=== PATIENT | male | born 1935 | race Caucasian/White ===

== ENCOUNTER 2017-06-12 09:21 | Emergency (ER) | payer MEDICARE, OTHER ==
[2017-06-12] MEDS ORDERED: Adacel (T-DAP) 0.5 ML VIAL ONE (10:02)
== END 2017-06-12 10:26 | disposition home or self-care (01) ==
LOC: ERS 09:21
DX: S80.811A Abrasion, right lower leg, initial encounter (principal); L03.115 Cellulitis of right lower limb; W22.8XXA Striking against or struck by other objects, initial encounter; Y93.53 Activity, golf
CPT/HCPCS: 90471; 90715

== ENCOUNTER 2017-12-19 12:47 | Emergency (ER) | payer MEDICARE, OTHER ==
--- NOTE | 2017-12-19 15:57 | RAD ---
PA AND LATERAL CHEST: Date: 12/19/17 HISTORY: Cough, congestion, and sore throat. FINDINGS: Heart size and mediastinum are within normal limits. Lungs are clear of infiltrates. There are some m ild arthritic changes of the spine. IMPRESSION: No active intrathoracic disease. POS: [facility]
== END 2017-12-19 15:41 | disposition home or self-care (01) ==
LOC: ERS 12:47
DX: J06.9 Acute upper respiratory infection, unspecified (principal); E78.5 Hyperlipidemia, unspecified; Z79.82 Long term (current) use of aspirin; Z79.899 Other long term (current) drug therapy
CPT/HCPCS: 71046

== ENCOUNTER 2018-12-29 14:42 | Outpatient (CLI) | payer MEDICARE, OTHER ==
[2018-12-29 15:38] LABS: #Basophils 0.1 thou/uL (0.0-0.2); #Eosinphils 0.1 thou/uL (0.0-0.7); #Lymphocytes 1.9 thou/uL (1.20-3.40); #Monocytes 0.7 thou/uL (0.11-0.59); %Basophils 1.1 % (0.0-1.0); %Lymphocytes 28.2 % (21.0-51.0); %Neutrophils 58.7 % (42.0-75.0); Hemoglobin 14.9 g/dL (14.0-18.0); Mean Corpuscular HGB CONC 32.4 g/dL (32.0-36.0); Mean Corpuscular Hemoglobin 30.6 pg (27.0-31.0); Mean Corpuscular Volume 94.4 fL (78.0-98.0); Mean Platelet Volume 8.3 fL (7.4-10.4); Platelet Count 279 thou/uL (130-400); RBC Distribution Width 12.4 % (11.5-14.5); Red Blood Cell (RBC) Count 4.86 mill/uL (4.70-6.10); White Blood Cell (WBC) Count 6.8 thou/uL (4.8-10.8)
[2018-12-29 16:01] LABS: ALT (SGPT) 15 U/L (8-55); AST (SGOT) 16 U/L (5-34); Albumin 4.4 g/dL (3.4-4.8); Alkaline Phosphatase 72 U/L (40-150); Anion Gap 12 mmol/L (10-20); BUN (Urea Nitrogen) 15 mg/dL (8.4-25.7); Bilirubin, Total 0.5 mg/dL (0.2-1.2); Calc. Creatinine Clearance 0 mL/min (70-130); Calcium 9.5 mg/dL (7.8-10.44); Carbon Dioxide 28 mmol/L (23-31); Chloride 103 mmol/L (98-107); Estimated GFR-MDRD 82; Globulin 2.2 g/dL (2.4-3.5); Potassium 3.9 mmol/L (3.5-5.1); Protein, Total 6.6 g/dL (5.8-8.1); Sodium 139 mmol/L (136-145)
[2018-12-29 16:16] LABS: Glucose 59 mg/dL (83-110)
== END 2018-12-29 14:43 | disposition home or self-care (01) ==
LOC: LABBT 14:42
PROVIDERS: ATTEND Surgery
DX: Z01.818 Encounter for other preprocedural examination (principal); K40.90 Unilateral inguinal hernia, without obstruction or gangrene, not specified as recurrent
CPT/HCPCS: 80053; 85025; 93005; 93010

== ENCOUNTER 2019-01-03 11:16 | Day surgery (SDC) | payer MEDICARE, OTHER ==
[2018-12-29 15:40] VITALS: BMI 25.3
[2019-01-03] MEDS ORDERED: Bupivacaine/Epinephrine 0.25% 30 ML VIAL ONE (13:27)
[2019-01-03] MEDS ORDERED: Fentanyl 100 MCG/2 ML VIAL ONE ×2 (13:31→14:59)
--- NOTE | 2019-01-03 15:43 | OP ---
DATE OF PROCEDURE: 01/03/2019 PREOPERATIVE DIAGNOSIS: Right inguinal hernia. PROCEDURE PERFORMED: Right inguinal hernia repair with mesh. INDICATIONS: This is an 83-year-old male with a painful bulge in the right groin, found to have a hernia. FINDINGS: Right indirect inguinal hernia without a lipoma of the cord. DESCRIPTION OF PROCEDURE: After informed consent was obtained, the patient was taken to the operating room and given general and mask anesthesia, placed in supine position. His groin was prepped and draped in usual fashion. Local anesthesia infiltrated subcutaneously and deep. Transverse right inguinal incision was performed. Subcu divided sharply. The fascia external oblique was incised in direction of its fibers through the external ring. Spermatic cord isolated with a [place] drain. Cremasteric fibers and a large lipoma was dissected from surrounding cord structures. Its base was ligated with a 2-0 silk suture and removed. A hernia sac was then found. This was also dissected from surrounding cord structures down to the internal ring and reduced. Reduction maintained with a PHS hernia system placed in the preperitoneal space. Anterior was laid out, sutured to the pubic tubercle medially with a 2-0 Prolene suture laterally. It was tucked under the external oblique fascia. Hemostasis assured. The cord placed anatomically. The external oblique fascia closed with a running 3-0 Vicryl. Ashleigh was closed with interrupted 3-0 Vicryl and the skin closed with a running subcuticular 4-0 Rapide. Steri-Strips applied. Sterile bandage applied. The patient tolerated the procedure well, transferred to Recovery in good condition. Sponge and needle count verified correct x2. Job ID: [id number]
== END 2019-01-03 16:45 | disposition home or self-care (01) ==
LOC: SDC 11:16
PROVIDERS: ATTEND Surgery
PROC: 0YU50JZ Supplement Right Inguinal Region with Synthetic Substitute, Open Approach (ICD-10-PCS; principal; 2019-01-03)
DX: K40.90 Unilateral inguinal hernia, without obstruction or gangrene, not specified as recurrent (principal); D17.6 Benign lipomatous neoplasm of spermatic cord; E78.00 Pure hypercholesterolemia, unspecified; Z79.82 Long term (current) use of aspirin; Z79.899 Other long term (current) drug therapy
CPT/HCPCS: C1781; J0690; J3010

== ENCOUNTER 2019-04-20 07:35 | Outpatient (CLI) | payer MEDICARE, OTHER ==
--- NOTE | 2019-04-20 08:45 | MRI ---
MRI LUMBAR SPINE WITHOUT CONTRAST: DATE: 04/20/2019. COMPARISON: 02/07/2014. HISTORY: Bilateral leg pain, back pain, spinal stenosis. TECHNIQUE: Multiplanar multisequence MR imaging of the lumbar spine obtained without contrast. FINDINGS: The sagittal STIR imaging demonstrates a focal area of osseous marrow edema associated with the right lateral aspect of the L5 superior endplate. This may be on the basis of a mild superior endplate fracture or acute Schmorl's node. There is no significant vertebral body height loss. There is a new T1-T2 hypointense round 8 mm focus within the L4 vertebral body abutting the superior endplate. On the basis of 5 lumbar type vertebral bodies, conus medullaris terminates at L1. T12-L1: Intervertebral disc height and signal intensity within normal limits with no significant cent ral canal or neural foraminal stenosis. L1-2: Mild bilateral facet hypertrophy. Intervertebral disc height and signal intensity is within nor mal limits. No significant central canal or neural foraminal stenosis. L2-3: Mild bilateral facet hypertrophy. No significant central canal or neural foraminal stenosis. L3-4: There is disc space narrowing and disc desiccation. Bilateral facet hypertrophy noted, left gre ater than right. There is significant left lateral osteophyte formation, stable. Stable foraminal and post foraminal disc protrusion on the left. No significant central canal stenosis. Mild right and moderate left neural foraminal stenosis. L4-5: There is disc space narrowing and disc desiccation with disc bulge. There is a superimposed kelly tral/right paracentral disc protrusion, increased in size when compared to the prior exam. There is associated inferior migration measuring approximately 7-8 mm. There is also prominent bilateral facet hypertrophy and hypertrophy of the ligamentum flavum. These findings lead to severe central canal stenosis/right lateral recess stenosis, significantly worsened when compared to the prior exam. Moder ate right and mild/moderate left neural foraminal stenosis. L5-S1: There is disc space narrowing, disc desiccation, and mild disc bulge with mild central canal s tenosis, stable. Mild/moderate bilateral neural foraminal stenosis, right greater than left, not significantly changed. The visualized retroperitoneal structures appear grossly unremarkable. IMPRESSION: 1. Multilevel lumbar spine degenerative change, most significantly involving the L4-5 level, worsen ed since the prior examination. 2. Focal edema involving superior endplate of L5 laterally on the right suggesting a mild superior e ndplate fracture or acute Schmorl's node. 3. T1 and T2 hypointense lesion within the L4 vertebral body, new. This should be further assessed v ia CT examination. This could signify a new sclerotic lesion. CODE T Transcribed Date/Time: 04/20/2019 9:44 AM
== END 2019-04-20 07:36 | disposition home or self-care (01) ==
LOC: TBSIIMAG 07:35
PROVIDERS: ATTEND Family Medicine
DX: M48.061 Spinal stenosis, lumbar region without neurogenic claudication (principal); M47.26 Other spondylosis with radiculopathy, lumbar region
CPT/HCPCS: 72148

== ENCOUNTER 2019-04-25 13:19 | Outpatient (CLI) | payer MEDICARE, OTHER ==
--- NOTE | 2019-04-25 15:44 | CT ---
CT of the lumbar spine: 04/25/2019 COMPARISON: None HISTORY: Abnormal lumbar spine MRI demonstrating a probable superior endplate fracture at L5 and nons pecific vertebral body lesion along the superior endplate of L4 TECHNIQUE: Axial CT imaging at 3 mm intervals through the lumbar spine with coronal and sagittal imag ing FINDINGS: The imaged retroperitoneal structures demonstrate a few nonobstructing right renal calculi measuring 2-3 mm. There is mild degenerative change involving bilateral sacroiliac joints. Evaluation for central canal and/or neural foraminal stenosis is limited on routine CT. There is a round lesion with a sclerotic border incontinuity with the superior endplate of the L4 mannie tebral body measuring 9 mm in craniocaudal dimension. This correlates with the area of signal abnormality on recent MRI and is most consistent with a benign Schmorl's node. In addition, there is ill-defined irregular lucency involving the right lateral aspect of the superio r endplate of the L5 vertebral body, consistent with a Schmorl's node. The adjacent bone is slightly sclerotic and there is mild loss of vertebral body height in this region. This correlates wi th the area of signal abnormality within the L5 vertebral body on recent MRI. This suggest mild superior endplate fracture and or edema associated with a Schmorl's node. There are no aggressive suspicious worrisome lytic or blastic bone lesions within the lumbar spine. T12-L1: No osseous cause of significant central canal or neural foraminal stenosis L1-2: No osseous cause of significant central canal or neural foraminal stenosis. Mild bilateral face t hypertrophy. L2-3: No osseous cause of significant central canal or neural foraminal stenosis. L3-4: Mild disc bulge and mild bilateral facet hypertrophy/hypertrophy ligamentum flavum. No osseous cause of significant central canal or neural foraminal stenosis. L4-5: Disc bulge with central disc protrusion suspected. Bilateral facet hypertrophy. No osseous caus e of significant central canal or neural foraminal stenosis. There is central canal and bilateral neural foraminal stenosis secondary to facet hypertrophy and disc pathology, that are assessed on rec ent MRI. L5-S1: Bilateral facet hypertrophy with significant bilateral neural foraminal stenosis. Mild disc bu lge. IMPRESSION: Lesion within L4 vertebral body seen on recent MRI correlates with a benign Schmorl's nod e. There are areas of degenerative change as detailed above. Abnormality involving the superior endplate on the right at L5 suggest mild superior endplate fracture and/or edema on the basis of a Sc hmorl's node. Please refer to the lumbar spine MRI performed at 04/20/2019 for full assessment of lumbar spine centr al canal and neural foraminal stenosis.
== END 2019-04-25 13:20 | disposition home or self-care (01) ==
LOC: BICCT 13:19
PROVIDERS: ATTEND Family Medicine
DX: R93.7 Abnormal findings on diagnostic imaging of other parts of musculoskeletal system (principal); M89.9 Disorder of bone, unspecified; M47.816 Spondylosis without myelopathy or radiculopathy, lumbar region
CPT/HCPCS: 72131

== ENCOUNTER 2019-05-03 13:11 | Outpatient (CLI) | payer MEDICARE, OTHER ==
--- NOTE | 2019-05-03 14:01 | RAD ---
LUMBAR SPINE 4 VIEWS: Date: 05/03/19 INDICATION: Lumbar radiculopathy. FINDINGS: Lumbar vertebra maintain normal height and alignment. Mild loss of disc space at L3-4, L4-5, and L5-S 1. Mild degenerative osteophytes. Mild facet hypertrophy. No evidence of spondylolisthesis. Slight po sterolisthesis at L3-4 is seen and does not appear to change with flexion or extension. IMPRESSION: Degenerative changes of the lumbar spine as described. POS: OFF
== END 2019-05-03 13:12 | disposition home or self-care (01) ==
LOC: TBSIIMAG 13:11
PROVIDERS: ATTEND Neurological Surgery
DX: M47.26 Other spondylosis with radiculopathy, lumbar region (principal)
CPT/HCPCS: 72110

== ENCOUNTER 2020-12-16 07:50 | Outpatient (CLI) | payer MEDICARE, OTHER | END 2020-12-16 07:51 | disposition home or self-care (01) | LOC: TBSIIMAG 07:50 | PROVIDERS: ATTEND Urology | DX: R97.20 Elevated prostate specific antigen [PSA] (principal) | CPT/HCPCS: 72197 ==

== ENCOUNTER 2021-06-14 07:12 | Emergency (ER) | payer MEDICARE, OTHER | END 2021-06-14 08:12 | disposition home or self-care (01) | LOC: ERS 07:12 | DX: S70.02XA Contusion of left hip, initial encounter (principal); S60.222A Contusion of left hand, initial encounter; E78.5 Hyperlipidemia, unspecified; E78.00 Pure hypercholesterolemia, unspecified; W19.XXXA Unspecified fall, initial encounter ==

== ENCOUNTER 2022-04-13 11:01 | Inpatient (IN) | payer MEDICARE, OTHER ==
[2022-04-13] MEDS ORDERED: Boostrix 0.5 ML (Tdap) VIAL (>/=7 yrs of age) ONE (12:09)
[2022-04-13] MEDS ORDERED: Cefepime 2 GM VIAL ONE (12:10)
[2022-04-13] MEDS ORDERED: Acetaminophen 500 MG TAB ONE (12:10)
[2022-04-13 12:13] LABS: Mean Corpuscular HGB CONC 32.7 g/dL (32.0-36.0); Mean Corpuscular Hemoglobin 31.2 pg (27.0-31.0); Mean Corpuscular Volume 95.5 fL (78.0-98.0); Mean Platelet Volume 7.8 fL (7.4-10.4); Platelet Count 269 thou/uL (130-400); RBC Distribution Width 12.7 % (11.5-14.5); Red Blood Cell (RBC) Count 4.48 mill/uL (4.70-6.10); White Blood Cell (WBC) Count 13.9 thou/uL (4.8-10.8)
[2022-04-13] MEDS ORDERED: Ondansetron ODT 4 MG TAB PO PRN (12:15)
[2022-04-13] MEDS ORDERED: Senokot S 8.6-50 MG TAB PO PRN (12:15)
[2022-04-13] MEDS ORDERED: HYDROcodone/Acetaminophen 5/325 mg Tablet PO PRN (12:15)
[2022-04-13] MEDS ORDERED: Ondansetron PF 4 MG/2 ML Vial IVP PRN (12:15)
[2022-04-13 12:27] LABS: ALT (SGPT) 26 U/L (8-55); AST (SGOT) 21 U/L (5-34); Albumin 3.6 g/dL (3.4-4.8); Alkaline Phosphatase 94 U/L (40-110); Anion Gap 14 mmol/L (10-20); BUN (Urea Nitrogen) 19 mg/dL (8.4-25.7); Bilirubin, Total 1.2 mg/dL (0.2-1.2); CK (CPK) 56 U/L (30-200); Calc. Creatinine Clearance 0 mL/min (70-130); Calcium 9.7 mg/dL (7.8-10.44); Carbon Dioxide 26 mmol/L (23-31); Chloride 99 mmol/L (98-107); Estimated GFR 76; Globulin 3.2 g/dL (2.4-3.5); Glucose 123 mg/dL (83-110); Potassium 4.3 mmol/L (3.5-5.1); Protein, Total 6.8 g/dL (5.8-8.1); Sodium 135 mmol/L (136-145)
[2022-04-13 12:44] LABS: Band 23 % (5-11); Lymphocytes 6 % (21-51); MDiff Complete? YES; Monocytes 12 % (0-10); Neutrophil 59 % (42-75); Platelet Morphology Comment Appears Adequate; RBC Morphology Normal
[2022-04-13] MEDS ORDERED: VANCOMYCIN 1.25 GM/250 ML BAG 1.25 GM in Premix Bag 1 BAG IVPB SCH (12:45)
[2022-04-13 15:11] VITALS: BMI 25.7
[2022-04-13] MEDS: Sodium Chloride 0.9% 1,000 ML IV SCH (16:06)
[2022-04-13] MEDS: Acetaminophen 325 MG TAB PO PRN (21:39)
[2022-04-13] MEDS: Atorvastatin Calcium 20 MG TAB PO SCH (21:39)
[2022-04-13] MEDS: Cefepime 1 GM in Sodium Chloride 0.9% 100 ML IVPB SCH (22:18)
[2022-04-14] MEDS: Vancomycin HCl 750 MG in Sodium Chloride 0.9% 250 ML 250 ML IVPB SCH ×2 (00:32→14:44)
[2022-04-14] MEDS: Acetaminophen 325 MG TAB PO PRN ×3 (05:06→15:20)
[2022-04-14] MEDS: Sodium Chloride 0.9% 1,000 ML IV SCH ×2 (06:33→11:24)
[2022-04-14 07:17] LABS: Hemoglobin 13.3 g/dL (14.0-18.0); Mean Corpuscular HGB CONC 32.8 g/dL (32.0-36.0); Mean Corpuscular Hemoglobin 31.3 pg (27.0-31.0); Mean Corpuscular Volume 95.5 fL (78.0-98.0); Platelet Count 247 thou/uL (130-400); RBC Distribution Width 12.5 % (11.5-14.5); Red Blood Cell (RBC) Count 4.26 mill/uL (4.70-6.10); White Blood Cell (WBC) Count 11.8 thou/uL (4.8-10.8)
[2022-04-14 07:42] LABS: ALT (SGPT) 36 U/L (8-55); AST (SGOT) 29 U/L (5-34); Alkaline Phosphatase 96 U/L (40-110); Anion Gap 14 mmol/L (10-20); BUN (Urea Nitrogen) 16 mg/dL (8.4-25.7); Calc. Creatinine Clearance 84 mL/min (70-130); Calcium 8.3 mg/dL (7.8-10.44); Carbon Dioxide 21 mmol/L (23-31); Chloride 102 mmol/L (98-107); Estimated GFR 87; Globulin 2.7 g/dL (2.4-3.5); Glucose 128 mg/dL (83-110); Potassium 3.5 mmol/L (3.5-5.1); Protein, Total 5.7 g/dL (5.8-8.1); Sodium 133 mmol/L (136-145)
[2022-04-14] MEDS: Heparin 5,000 UNITS/ML VIAL SC SCH ×3 (08:36→21:17)
[2022-04-14 10:20] LABS: Band 39 % (5-11); Lymphocytes 5 % (21-51); MDiff Complete? YES; Monocytes 15 % (0-10); Neutrophil 41 % (42-75); Platelet Morphology Comment Appears Adequate; RBC Morphology Normal
[2022-04-14] MEDS ORDERED: Iopamidol 370 76% 100 ML VIAL ONE (10:42)
[2022-04-14] MEDS ORDERED: Ibuprofen 600 MG TAB PO PRN (11:02)
[2022-04-14] MEDS: Cefepime 1 GM in Sodium Chloride 0.9% 100 ML IVPB SCH (11:09)
[2022-04-14] MEDS: Cefepime 2 GM in Sodium Chloride 0.9% 100 ML IVPB SCH (11:23)
[2022-04-14] MEDS ORDERED: Cefepime 2 GM VIAL ONE (11:39)
[2022-04-14] MEDS ORDERED: CEFAZOLIN 2 GM in Sodium Chloride 0.9% 100 ML IVPB SCH (12:30)
[2022-04-14] MEDS: Atorvastatin Calcium 20 MG TAB PO SCH (21:17)
[2022-04-15] MEDS: Cefepime 2 GM in Sodium Chloride 0.9% 100 ML IVPB SCH ×3 (00:21→22:00)
[2022-04-15] MEDS: Vancomycin HCl 750 MG in Sodium Chloride 0.9% 250 ML 250 ML IVPB SCH ×2 (01:46→14:52)
[2022-04-15 06:45] LABS: Anion Gap 11 mmol/L (10-20); BUN (Urea Nitrogen) 15 mg/dL (8.4-25.7); Calc. Creatinine Clearance 82 mL/min (70-130); Calcium 8.6 mg/dL (7.8-10.44); Carbon Dioxide 27 mmol/L (23-31); Chloride 100 mmol/L (98-107); Estimated GFR 87; Glucose 110 mg/dL (83-110); Potassium 3.5 mmol/L (3.5-5.1); Sodium 134 mmol/L (136-145)
[2022-04-15 07:08] LABS: Hemoglobin 12.7 g/dL (14.0-18.0); Mean Corpuscular HGB CONC 33.3 g/dL (32.0-36.0); Mean Corpuscular Hemoglobin 31.6 pg (27.0-31.0); Mean Corpuscular Volume 94.9 fL (78.0-98.0); Mean Platelet Volume 7.8 fL (7.4-10.4); Platelet Count 277 thou/uL (130-400); RBC Distribution Width 12.5 % (11.5-14.5); White Blood Cell (WBC) Count 13.4 thou/uL (4.8-10.8)
[2022-04-15] MEDS: Heparin 5,000 UNITS/ML VIAL SC SCH (09:10)
[2022-04-15] MEDS: Acetaminophen 325 MG TAB PO PRN (09:31)
[2022-04-15 10:50] LABS: Band 51 % (5-11); Lymphocytes 9 % (21-51); MDiff Complete? YES; Monocytes 1 % (0-10); Neutrophil 38 % (42-75); Platelet Morphology Comment Appears Adequate; Polychromasia SLIGHT = 2-3 cells (100X) (0-2/hpf); Reactive Lymphocytes 1 % (0-10); Toxic Granulation SLIGHT; Vacuoles SLIGHT
[2022-04-15 13:19] LABS: Vancomycin, Trough 6.9 ug/mL
[2022-04-15] MEDS: VANCOMYCIN 1.25 GM/250 ML BAG 1.25 GM in Premix Bag 1 BAG IVPB SCH (14:51)
[2022-04-15] MEDS ORDERED: Neomycin-Polymyxin 1 ML AMP ONE ×2 (17:48→18:52)
[2022-04-15] MEDS ORDERED: fentaNYL Citrate/PF 100 MCG/2 ML SYRINGE ONE ×2 (17:56→18:40)
[2022-04-15] MEDS ORDERED: Lidocaine 1% MPF 2 ML VIAL ONE (18:10)
[2022-04-15] MEDS ORDERED: Ondansetron PF 4 MG/2 ML Vial ONE (18:10)
[2022-04-15] MEDS ORDERED: PROPOFOL 200 MG/20 ML VIAL ONE (18:10)
[2022-04-15] MEDS ORDERED: Promethazine HCl 25 MG/ML VIAL IVPB PRN (19:23)
[2022-04-15] MEDS ORDERED: HYDROmorphone 2 MG/ML VIAL SLOW IVP PRN (19:23)
[2022-04-15] MEDS ORDERED: Promethazine HCl 25 MG/ML VIAL IM PRN (19:23)
[2022-04-15] MEDS ORDERED: Ondansetron HCl/PF 4 MG/2 ML Vial IVP PRN (19:23)
[2022-04-15] MEDS ORDERED: HYDROmorphone 2 MG/ML VIAL ONE (19:33)
[2022-04-15] MEDS ORDERED: Ketorolac Tromethamine 30 MG/ML VIAL ONE (19:38)
[2022-04-15] MEDS: HYDROcodone/Acetaminophen 5/325 mg Tablet PO PRN (21:13)
[2022-04-15] MEDS: Atorvastatin Calcium 20 MG TAB PO SCH (21:14)
[2022-04-16] MEDS: VANCOMYCIN 1.25 GM/250 ML BAG 1.25 GM in Premix Bag 1 BAG IVPB SCH ×2 (01:42→14:10)
[2022-04-16] MEDS: HYDROcodone/Acetaminophen 5/325 mg Tablet PO PRN ×2 (01:42→20:23)
[2022-04-16] MEDS: Cefepime 2 GM in Sodium Chloride 0.9% 100 ML IVPB SCH ×2 (10:21→22:30)
[2022-04-16] MEDS ORDERED: CEFAZOLIN 2 GM in Sodium Chloride 0.9% 100 ML IVPB SCH (11:15)
[2022-04-16] MEDS: Atorvastatin Calcium 20 MG TAB PO SCH (20:23)
[2022-04-17 01:26] LABS: Vancomycin, Trough 13.3 ug/mL
[2022-04-17] MEDS: VANCOMYCIN 1.25 GM/250 ML BAG 1.25 GM in Premix Bag 1 BAG IVPB SCH ×2 (02:01→15:13)
[2022-04-17 06:27] LABS: #Basophils 0.1 thou/uL (0.0-0.2); #Eosinphils 0.4 thou/uL (0.0-0.7); #Lymphocytes 0.9 thou/uL (1.20-3.40); #Monocytes 1.2 thou/uL (0.11-0.59); #Neutrophils 10.2 thou/uL (1.40-6.50); %Basophils 0.4 % (0.0-1.0); %Eosinophils 3.1 % (0.0-10.0); %Lymphocytes 6.8 % (21.0-51.0); %Monocytes 9.2 % (0.0-10.0); %Neutrophils 80.6 % (42.0-75.0); Hemoglobin 11.3 g/dL (14.0-18.0); Mean Corpuscular HGB CONC 32.2 g/dL (32.0-36.0); Mean Corpuscular Hemoglobin 31.6 pg (27.0-31.0); Mean Platelet Volume 9.2 fL (7.4-10.4); Platelet Count 265 thou/uL (130-400); RBC Distribution Width 12.8 % (11.5-14.5); Red Blood Cell (RBC) Count 3.57 mill/uL (4.70-6.10); White Blood Cell (WBC) Count 12.7 thou/uL (4.8-10.8)
[2022-04-17 06:45] LABS: Anion Gap 11 mmol/L (10-20); BUN (Urea Nitrogen) 14 mg/dL (8.4-25.7); Calc. Creatinine Clearance 93 mL/min (70-130); Carbon Dioxide 26 mmol/L (23-31); Chloride 103 mmol/L (98-107); Estimated GFR 90; Glucose 103 mg/dL (83-110); Potassium 3.7 mmol/L (3.5-5.1); Sodium 136 mmol/L (136-145)
[2022-04-17] MEDS ORDERED: Sodium Chloride 0.9% 100 ML ONE (10:20)
[2022-04-17] MEDS ORDERED: CEFAZOLIN 2 GM VIAL ONE (10:20)
[2022-04-17] MEDS ORDERED: PROPOFOL 200 MG/20 ML VIAL ONE (10:39)
[2022-04-17] MEDS ORDERED: Lidocaine 1% MPF 2 ML VIAL ONE (10:39)
[2022-04-17] MEDS ORDERED: Promethazine HCl 25 MG/ML VIAL IM PRN (11:25)
[2022-04-17] MEDS ORDERED: Promethazine HCl 25 MG/ML VIAL IVPB PRN (11:25)
[2022-04-17] MEDS ORDERED: Ondansetron HCl/PF 4 MG/2 ML Vial IVP PRN (11:25)
[2022-04-17] MEDS ORDERED: fentaNYL Citrate/PF 100 MCG/2 ML SYRINGE ONE ×3 (11:30→12:03)
[2022-04-17] MEDS: Cefepime 2 GM in Sodium Chloride 0.9% 100 ML IVPB SCH ×2 (12:51→22:42)
[2022-04-17] MEDS: Atorvastatin Calcium 20 MG TAB PO SCH (20:01)
[2022-04-17] MEDS: HYDROcodone/Acetaminophen 5/325 mg Tablet PO PRN (20:01)
[2022-04-18] MEDS: VANCOMYCIN 1.25 GM/250 ML BAG 1.25 GM in Premix Bag 1 BAG IVPB SCH ×2 (01:58→14:37)
[2022-04-18 07:17] LABS: White Blood Cell (WBC) Count 11.4 thou/uL (4.8-10.8)
[2022-04-18] MEDS: Cefepime 2 GM in Sodium Chloride 0.9% 100 ML IVPB SCH ×2 (10:58→21:55)
[2022-04-18 13:40] LABS: Vancomycin, Trough 15.4 ug/mL
[2022-04-18] MEDS: Atorvastatin Calcium 20 MG TAB PO SCH (21:55)
[2022-04-19] MEDS: VANCOMYCIN 1.25 GM/250 ML BAG 1.25 GM in Premix Bag 1 BAG IVPB SCH ×2 (02:02→14:32)
[2022-04-19] MEDS ORDERED: Gentamicin 80 MG/2 ML VIAL ONE (08:09)
[2022-04-19] MEDS ORDERED: Neomycin-Polymyxin 1 ML AMP ONE (08:09)
[2022-04-19] MEDS ORDERED: Bupivacaine PF 0.5% 30 ML VIAL ONE (08:09)
[2022-04-19] MEDS ORDERED: Bupivacaine HCl 0.5%/Epinephrine 1:200,000/PF 30 ml Vial ONE (08:09)
[2022-04-19] MEDS ORDERED: Famotidine/PF 20 mg/2ml Vial ONE (08:10)
[2022-04-19] MEDS ORDERED: fentaNYL Citrate/PF 100 MCG/2 ML SYRINGE ONE (08:10)
[2022-04-19] MEDS ORDERED: Lidocaine 1% MPF 2 ML VIAL ONE (08:26)
[2022-04-19] MEDS ORDERED: PROPOFOL 200 MG/20 ML VIAL ONE (08:26)
[2022-04-19] MEDS ORDERED: Ketorolac Tromethamine 30 MG/ML VIAL ONE (08:26)
[2022-04-19] MEDS ORDERED: Metoclopramide HCl 10 MG/2 ML VIAL ONE (08:26)
[2022-04-19] MEDS ORDERED: Ondansetron PF 4 MG/2 ML Vial ONE (08:26)
[2022-04-19] MEDS ORDERED: Phenylephrine 10 MG/ML VIAL ONE (08:26)
[2022-04-19] MEDS ORDERED: Ondansetron HCl/PF 4 MG/2 ML Vial IVP PRN (09:28)
[2022-04-19] MEDS ORDERED: Fentanyl 100 MCG/2 ML VIAL ONE (09:50)
[2022-04-19] MEDS ORDERED: Amlodipine 5 MG TAB PO SCH (10:45)
[2022-04-19] MEDS: Cefepime 2 GM in Sodium Chloride 0.9% 100 ML IVPB SCH ×2 (10:57→23:44)
[2022-04-19] MEDS: HYDROcodone/Acetaminophen 5/325 mg Tablet PO PRN ×3 (14:34→23:49)
[2022-04-19] MEDS: Atorvastatin Calcium 20 MG TAB PO SCH (19:44)
[2022-04-20 01:34] LABS: Vancomycin, Trough 18.1 ug/mL
[2022-04-20] MEDS: VANCOMYCIN 1.25 GM/250 ML BAG 1.25 GM in Premix Bag 1 BAG IVPB SCH ×2 (01:55→14:56)
[2022-04-20] MEDS: Amlodipine 5 MG TAB PO SCH (09:10)
[2022-04-20] MEDS: Saccharomyces boulardii 250 MG CAP PO SCH (09:10)
[2022-04-20] MEDS: Cefepime 2 GM in Sodium Chloride 0.9% 100 ML IVPB SCH ×2 (11:26→23:26)
[2022-04-20] MEDS: HYDROcodone/Acetaminophen 5/325 mg Tablet PO PRN (20:20)
[2022-04-20] MEDS: Atorvastatin Calcium 20 MG TAB PO SCH (20:20)
[2022-04-21] MEDS: VANCOMYCIN 1.25 GM/250 ML BAG 1.25 GM in Premix Bag 1 BAG IVPB SCH ×2 (02:00→16:26)
[2022-04-21 07:15] LABS: Hemoglobin 11.1 g/dL (14.0-18.0); Mean Corpuscular Hemoglobin 29.8 pg (27.0-31.0); Mean Corpuscular Volume 96.2 fL (78.0-98.0); Mean Platelet Volume 7.2 fL (7.4-10.4); Platelet Count 515 thou/uL (130-400); RBC Distribution Width 13.1 % (11.5-14.5); Red Blood Cell (RBC) Count 3.73 mill/uL (4.70-6.10); White Blood Cell (WBC) Count 9.1 thou/uL (4.8-10.8)
[2022-04-21 08:17] LABS: Band 8 % (5-11); Eosinophils 6 % (0-10); Hypochromia SLIGHT = 6-15 cells (100X) (0-5/hpf); Lymphocytes 9 % (21-51); MDiff Complete? YES; Monocytes 11 % (0-10); Myelocyte 3 % (0-0); Neutrophil 60 % (42-75); Ovalocytes SLIGHT = 2-5 cells (100X) (0-1/hpf); Platelet Morphology Comment Appears Increased; Polychromasia SLIGHT = 2-3 cells (100X) (0-2/hpf); Reactive Lymphocytes 1 % (0-10)
[2022-04-21] MEDS: Morphine 2 MG/ML VIAL SLOW IVP PRN (09:39)
[2022-04-21] MEDS: Amlodipine 5 MG TAB PO SCH (09:42)
[2022-04-21] MEDS: Saccharomyces boulardii 250 MG CAP PO SCH (09:43)
[2022-04-21] MEDS: Cefepime 2 GM in Sodium Chloride 0.9% 100 ML IVPB SCH ×2 (10:00→22:48)
[2022-04-21] MEDS ORDERED: Fentanyl 100 MCG/2 ML VIAL SLOW IVP SCH (10:30)
[2022-04-21 13:42] LABS: Vancomycin, Trough 16.8 ug/mL
[2022-04-21] MEDS: HYDROcodone/Acetaminophen 5/325 mg Tablet PO PRN (19:49)
[2022-04-21] MEDS: Atorvastatin Calcium 20 MG TAB PO SCH (19:49)
[2022-04-22] MEDS: VANCOMYCIN 1.25 GM/250 ML BAG 1.25 GM in Premix Bag 1 BAG IVPB SCH ×2 (02:14→14:59)
[2022-04-22 06:42] LABS: #Basophils 0.1 thou/uL (0.0-0.2); #Lymphocytes 1.1 thou/uL (1.20-3.40); #Monocytes 0.9 thou/uL (0.11-0.59); #Neutrophils 7.3 thou/uL (1.40-6.50); %Basophils 0.6 % (0.0-1.0); %Eosinophils 9.7 % (0.0-10.0); %Lymphocytes 10.5 % (21.0-51.0); %Monocytes 8.8 % (0.0-10.0); %Neutrophils 70.5 % (42.0-75.0); Hemoglobin 11.6 g/dL (14.0-18.0); Mean Corpuscular HGB CONC 31.4 g/dL (32.0-36.0); Mean Corpuscular Hemoglobin 30.1 pg (27.0-31.0); Mean Corpuscular Volume 95.7 fL (78.0-98.0); Mean Platelet Volume 7.4 fL (7.4-10.4); Platelet Count 537 thou/uL (130-400); RBC Distribution Width 13.3 % (11.5-14.5); Red Blood Cell (RBC) Count 3.87 mill/uL (4.70-6.10); White Blood Cell (WBC) Count 10.4 thou/uL (4.8-10.8)
[2022-04-22 07:04] LABS: Anion Gap 13 mmol/L (10-20); BUN (Urea Nitrogen) 11 mg/dL (8.4-25.7); Calc. Creatinine Clearance 88 mL/min (70-130); Calcium 8.5 mg/dL (7.8-10.44); Carbon Dioxide 26 mmol/L (23-31); Chloride 101 mmol/L (98-107); Estimated GFR 88; Glucose 107 mg/dL (83-110); Potassium 3.6 mmol/L (3.5-5.1); Sodium 136 mmol/L (136-145)
[2022-04-22] MEDS: Saccharomyces boulardii 250 MG CAP PO SCH (08:03)
[2022-04-22] MEDS: Amlodipine 5 MG TAB PO SCH (08:03)
[2022-04-22] MEDS: Cefepime 2 GM in Sodium Chloride 0.9% 100 ML IVPB SCH (10:43)
[2022-04-22] MEDS: Clindamycin 150 MG CAP PO SCH ×2 (15:06→20:23)
[2022-04-22] MEDS: Doxycycline 100 MG CAP PO SCH (20:23)
[2022-04-22] MEDS: Atorvastatin Calcium 20 MG TAB PO SCH (20:26)
[2022-04-23] MEDS: Clindamycin 150 MG CAP PO SCH ×3 (02:34→14:15)
[2022-04-23] MEDS: VANCOMYCIN 1.25 GM/250 ML BAG 1.25 GM in Premix Bag 1 BAG IVPB SCH (02:34)
[2022-04-23 08:43] VITALS: BP 120/70; TEMP 97.8
[2022-04-23] MEDS: Doxycycline 100 MG CAP PO SCH (09:03)
[2022-04-23] MEDS: Saccharomyces boulardii 250 MG CAP PO SCH (09:03)
[2022-04-23] MEDS: Amlodipine 5 MG TAB PO SCH (09:03)
[2022-04-23] MEDS: Morphine 2 MG/ML VIAL SLOW IVP PRN ×2 (15:38→15:44)
== END 2022-04-23 17:40 | disposition home or self-care (01) | DRG 464 ==
LOC: SUATTDRO 11:01 → ERS 11:01 → OBSVTOIN 12:15 → T4-B 12:15
PROVIDERS: ADMIT Internal Medicine; ATTEND Internal Medicine
PROC: 0MB30ZZ Excision of Right Elbow Bursa and Ligament, Open Approach (ICD-10-PCS; 2022-04-15)
PROC: 0JBG0ZZ Excision of Right Lower Arm Subcutaneous Tissue and Fascia, Open Approach (ICD-10-PCS; principal; 2022-04-17)
PROC: 0MB30ZZ Excision of Right Elbow Bursa and Ligament, Open Approach (ICD-10-PCS; 2022-04-19)
DX: M71.121 Other infective bursitis, right elbow (principal); E87.1 Hypo-osmolality and hyponatremia; L02.414 Cutaneous abscess of left upper limb; L03.113 Cellulitis of right upper limb; Z20.822 Contact with and (suspected) exposure to COVID-19; E78.5 Hyperlipidemia, unspecified; M79.89 Other specified soft tissue disorders; B95.62 Methicillin resistant Staphylococcus aureus infection as the cause of diseases classified elsewhere; Z98.890 Other specified postprocedural states; Z79.899 Other long term (current) drug therapy; Z85.46 Personal history of malignant neoplasm of prostate; Z86.73 Personal history of transient ischemic attack (TIA), and cerebral infarction without residual deficits
CPT/HCPCS: 36415; 71046; 80048; 80053; 80202; 82550; 82565; 83605; 83735; 85025; 85048; 85652; 86140; 87040; 87070; 87077; 87186; 87205; 87811; 90471; 90715; 93306; 96365; 96366; 97139; J0690; J0692; J1170; J1580; J1644; J1885; J2270; J2370; J2405; J2704; J2765; J3010; J3370; J3490; J7050; Q9967; S0020; S0028; U0003; U0005

== ENCOUNTER 2023-07-24 14:24 | Inpatient (IN) | payer MEDICARE, OTHER ==
[~2023-07-24 14:24] MED LIST: Iopamidol-370 76% 500 ML MDV (1 ML CHARGE) ONE
[2023-07-24 16:28] LABS: #Basophils 0.1 thou/uL (0.0-0.2); #Eosinphils 0.1 thou/uL (0.0-0.7); #Monocytes 0.8 thou/uL (0.11-0.59); #Neutrophils 12.1 thou/uL (1.40-6.50); %Basophils 0.6 % (0.0-1.0); %Eosinophils 0.9 % (0.0-10.0); %Lymphocytes 5.7 % (21.0-51.0); %Monocytes 5.5 % (0.0-10.0); %Neutrophils 86.7 % (42.0-75.0); Hematocrit 47.7 % (42.0-52.0); Hemoglobin 15.6 g/dL (14.0-18.0); Mean Corpuscular HGB CONC 32.7 g/dL (32.0-36.0); Mean Corpuscular Hemoglobin 30.1 pg (27.0-31.0); Mean Corpuscular Volume 91.9 fl (78.0-98.0); Mean Platelet Volume 10.2 fL (7.4-10.4); Platelet Count 276 10x3/uL (130-400); RBC Distribution Width 13.9 % (11.5-14.5); Red Blood Cell (RBC) Count 5.19 mill/uL (4.70-6.10); White Blood Cell (WBC) Count 13.9 10x3/uL (4.8-10.8)
[2023-07-24] MEDS ORDERED: Ondansetron ODT 4 MG TAB ONE (16:40)
[2023-07-24 16:47] LABS: ALT (SGPT) 22 U/L (8-55); AST (SGOT) 22 U/L (5-34); Albumin 4.3 g/dL (3.4-4.8); Alkaline Phosphatase 75 U/L (40-110); Anion Gap 15 mmol/L (10-20); BUN (Urea Nitrogen) 15 mg/dL (8.4-25.7); Bilirubin, Total 0.6 mg/dL (0.2-1.2); Calc. Creatinine Clearance 0 mL/min (70-130); Calcium 9.6 mg/dL (7.8-10.44); Carbon Dioxide 26 mmol/L (23-31); Chloride 104 mmol/L (98-107); Estimated GFR 75; Globulin 3.1 g/dL (2.4-3.5); Glucose 138 mg/dL (83-110); Potassium 4.1 mmol/L (3.5-5.1); Protein, Total 7.4 g/dL (5.8-8.1); Sodium 141 mmol/L (136-145)
[2023-07-24] MEDS ORDERED: Meclizine HCl 25 MG TAB ONE (18:22)
[2023-07-24 18:54] LABS: Bilirubin Negative (Negative); Blood, Urine Negative (Negative); CAUTI Indications for Culture Pelvic or flank pain; Clarity Clear (Clear); Glucose, Urine (Dipstick) Normal (Negative); Ketone, Urine Negative (Negative); Leukocyte Negative Leu/uL (Negative); Mucous/LPF Rare LPF (<2+); Nitrite Negative (Negative); Protein, Urine (Dipstick) 10 mg/dL (Neg-Trace); RBC/HPF 0-3 HPF (0-3); Specific Gravity, Urine 1.017 (1.002-1.036); Squamous Epithelial 0-3 HPF (0-3); Urobilinogen Normal mg/dL (Less than 2)
[2023-07-24 18:55] LABS: Bacteria/HPF 1+ HPF (None Seen)
[2023-07-24 18:56] LABS: Urine Culture Reflex No No
[2023-07-24] MEDS ORDERED: Ondansetron PF 4 MG/2 ML Vial IVP PRN (21:00)
[2023-07-24] MEDS ORDERED: Acetaminophen 325 MG TAB PO PRN (21:00)
[2023-07-24] MEDS ORDERED: Ondansetron ODT 4 MG TAB SL PRN (21:00)
[2023-07-24] MEDS ORDERED: hydrALAZINE 20 MG/ML VIAL SLOW IVP PRN (21:36)
[2023-07-24] MEDS ORDERED: Aspirin 325 MG TAB PO SCH (22:15)
[2023-07-24 22:26] VITALS: BMI 25.4
[2023-07-25 06:37] LABS: #Basophils 0.1 thou/uL (0.0-0.2); #Eosinphils 0.3 thou/uL (0.0-0.7); #Monocytes 0.6 thou/uL (0.11-0.59); #Neutrophils 4.1 thou/uL (1.40-6.50); %Basophils 1.1 % (0.0-1.0); %Eosinophils 4.1 % (0.0-10.0); %Lymphocytes 17.8 % (21.0-51.0); %Monocytes 9.6 % (0.0-10.0); %Neutrophils 67.1 % (42.0-75.0); Hematocrit 41.1 % (42.0-52.0); Hemoglobin 13.5 g/dL (14.0-18.0); Mean Corpuscular HGB CONC 32.8 g/dL (32.0-36.0); Mean Corpuscular Hemoglobin 30.8 pg (27.0-31.0); Mean Corpuscular Volume 93.6 fl (78.0-98.0); Mean Platelet Volume 10.2 fL (7.4-10.4); Platelet Count 237 10x3/uL (130-400); RBC Distribution Width 14.1 % (11.5-14.5); Red Blood Cell (RBC) Count 4.39 mill/uL (4.70-6.10); White Blood Cell (WBC) Count 6.1 10x3/uL (4.8-10.8)
[2023-07-25 06:47] LABS: Hemoglobin A1c 6.1 % (4.0-6.0)
[2023-07-25 07:05] LABS: Anion Gap 10 mmol/L (10-20); BUN (Urea Nitrogen) 13 mg/dL (8.4-25.7); Calc. Creatinine Clearance 77 mL/min (70-130); Calcium 8.3 mg/dL (7.8-10.44); Carbon Dioxide 27 mmol/L (23-31); Cardiac Risk 3.4 (Less than 4.5); Chloride 107 mmol/L (98-107); Cholesterol 139 mg/dl (< 200 Desired); Estimated GFR 85; Glucose 93 mg/dL (83-110); HDL Cholesterol 41 mg/dL (>60 Neg Risk); LDL Cholesterol, Calculated 81 mg/dL; Potassium 3.7 mmol/L (3.5-5.1); Sodium 140 mmol/L (136-145); Triglycerides 85 mg/dL (Less than 150)
[2023-07-25] MEDS: Aspirin 81 mg Enteric Coated Tablet PO SCH (09:44)
[2023-07-25] MEDS ORDERED: Atorvastatin Calcium 40 MG TAB PO SCH (21:00)
[2023-07-26 05:30] LABS: #Basophils 0.1 thou/uL (0.0-0.2); #Eosinphils 0.3 thou/uL (0.0-0.7); #Monocytes 0.7 thou/uL (0.11-0.59); #Neutrophils 4.5 thou/uL (1.40-6.50); %Basophils 1.1 % (0.0-1.0); %Eosinophils 4.2 % (0.0-10.0); %Monocytes 10.5 % (0.0-10.0); %Neutrophils 66.9 % (42.0-75.0); Hemoglobin 14.4 g/dL (14.0-18.0); Mean Corpuscular HGB CONC 32.7 g/dL (32.0-36.0); Mean Corpuscular Hemoglobin 30.2 pg (27.0-31.0); Mean Corpuscular Volume 92.2 fl (78.0-98.0); Mean Platelet Volume 10.1 fL (7.4-10.4); Platelet Count 229 10x3/uL (130-400); RBC Distribution Width 14.2 % (11.5-14.5); Red Blood Cell (RBC) Count 4.77 mill/uL (4.70-6.10); White Blood Cell (WBC) Count 6.7 10x3/uL (4.8-10.8)
[2023-07-26 05:51] LABS: Anion Gap 11 mmol/L (10-20); BUN (Urea Nitrogen) 15 mg/dL (8.4-25.7); Calc. Creatinine Clearance 77 mL/min (70-130); Calcium 8.5 mg/dL (7.8-10.44); Carbon Dioxide 26 mmol/L (23-31); Chloride 106 mmol/L (98-107); Estimated GFR 85; Glucose 86 mg/dL (83-110); Potassium 3.7 mmol/L (3.5-5.1); Sodium 139 mmol/L (136-145)
[2023-07-26] MEDS: Aspirin 81 mg Enteric Coated Tablet PO SCH (08:35)
[2023-07-26 12:39] VITALS: BP 186/96; TEMP 97.3
== END 2023-07-26 15:59 | disposition home or self-care (01) | DRG 69 ==
LOC: ERS 14:24 → 2SE 20:43 → OBSVTOIN 20:43
PROVIDERS: ADMIT Internal Medicine; ATTEND Family Medicine
DX: G45.9 Transient cerebral ischemic attack, unspecified (principal); I10 Essential (primary) hypertension; E78.5 Hyperlipidemia, unspecified; Z98.41 Cataract extraction status, right eye; Z79.899 Other long term (current) drug therapy; Z98.890 Other specified postprocedural states; Z82.49 Family history of ischemic heart disease and other diseases of the circulatory system
CPT/HCPCS: 36415; 70496; 70498; 70551; 71045; 80048; 80053; 80061; 81001; 83036; 84484; 85025; 93005; 93306; G0378; Q0162